=== PATIENT | female | born 1980 | race Caucasian/White ===

== ENCOUNTER 2018-12-02 21:00 | Emergency (ER) | payer MEDICAID ==
[~2018-12-02] VITALS: Ht 160 cm; Wt 63.0 kg
[~2018-12-02 21:00] MED LIST: ALPR0.5T9 PO; AMPH30CA10 PO; ASPI1CPM9 PO; IBUP-1986 PO; LAMO25TA5 PO; ONDA4TAB12 PO; PANT40TA4 PO
[2018-12-02 21:07] VITALS: BP 107/62
[2018-12-02] MEDS ORDERED: ONDA8TAB6 PO (23:47)
[2018-12-02] MEDS ORDERED: acetaminophen 325mg tablet PO ONE (23:50)
[2018-12-02] MEDS ORDERED: ondansetron 4mg rapidly disintigrating tab PO ONE (23:50)
== END 2018-12-02 23:56 | disposition home or self-care (01) ==
LOC: ER 21:02
DX: S06.0X0A Concussion without loss of consciousness, initial encounter (principal); M79.10 Myalgia, unspecified site; R11.2 Nausea with vomiting, unspecified; R51 Headache; M54.2 Cervicalgia; R42 Dizziness and giddiness; J45.909 Unspecified asthma, uncomplicated; G89.29 Other chronic pain; Z86.73 Personal history of transient ischemic attack (TIA), and cerebral infarction without residual deficits; Z90.49 Acquired absence of other specified parts of digestive tract; Z90.710 Acquired absence of both cervix and uterus; Z98.890 Other specified postprocedural states; Z98.51 Tubal ligation status; Z88.2 Allergy status to sulfonamides; Z88.8 Allergy status to other drugs, medicaments and biological substances; Z79.82 Long term (current) use of aspirin; Z79.899 Other long term (current) drug therapy; V43.52XA Car driver injured in collision with other type car in traffic accident, initial encounter; Y93.I9 Activity, other involving external motion; Y92.488 Other paved roadways as the place of occurrence of the external cause; Y99.8 Other external cause status
CPT/HCPCS: 99284

== ENCOUNTER 2019-07-10 19:56 | Emergency (ER) | payer MEDICAID ==
[~2019-07-10] VITALS: Ht 160 cm; Wt 63.0 kg
[~2019-07-10 19:56] MED LIST changes: -AMPH30CA10 PO; +DEXT30CA6 PO; +ONDA8TAB6 PO
[2019-07-10 20:44] LABS: BASOPHILS # (AUTO) 0.1 X10'3 (0-0.2); BASOPHILS % (AUTO) 1.1 % (0-1); EOSINOPHILS # (AUTO) 0.2 X10'3 (0-0.9); EOSINOPHILS % (AUTO) 2.8 % (0-6); HEMATOCRIT 38.2 % (35.0-45.0); HEMOGLOBIN 13.1 g/dl (12.0-16.0); LYMPHOCYTES # (AUTO) 2.9 X10'3 (1.1-4.8); LYMPHOCYTES % (AUTO) 42.4 % (21-51); MEAN CORPUSCULAR HEMOGLOBIN 30.6 PG (27.0-31.0); MEAN CORPUSCULAR HGB CONC 34.3 g/dL (33.0-36.5); MEAN CORPUSCULAR VOLUME 89.4 FL (78-98); MEAN PLATELET VOLUME 9.3 FL (7.4-10.4); MONOCYTES # (AUTO) 0.6 X10'3 (0-0.9); MONOCYTES % (AUTO) 8.7 % (2-12); NEUTROPHILS # (AUTO) 3.1 X10'3 (1.8-7.7); PLATELET COUNT 202 X10'3 (140-440); RED BLOOD COUNT 4.27 X10'6 (4.20-5.60); RED CELL DISTRIBUTION WIDTH 13.6 % (11.5-14.5); WHITE BLOOD COUNT 6.8 X10'3 (4.5-11.0)
[2019-07-10 20:56] LABS: ALANINE AMINOTRANSFERASE 22 U/L (12-78); ALBUMIN 3.5 G/DL (3.4-5.0); ALKALINE PHOSPHATASE 95 IU/L (46-116); ANION GAP 7 (8-16); ASPARTATE AMINO TRANSFERASE 12 U/L (10-37); BILIRUBIN,TOTAL 0.1 MG/DL (0.1-1.0); BLOOD UREA NITROGEN 16 MG/DL (7-18); BUN/CREATININE RATIO 19.8 (6.6-38.0); CHLORIDE 107 MMOL/L (99-107); CREATININE 0.81 MG/DL (0.40-0.90); GLUCOSE 97 MG/DL (70-104); POTASSIUM 3.7 MMOL/L (3.5-5.1); SODIUM 143 MMOL/L (135-145); TOTAL CARBON DIOXIDE 28.7 MMOL/L (24-32); TOTAL PROTEIN 6.9 G/DL (6.4-8.2); eGFR 79 ML/MIN
[2019-07-10 20:59] LABS: TROPONIN I < 0.04 NG/ML (0.0-0.05)
[2019-07-10] MEDS ORDERED: sucralfate 1 gm tablet PO ONE (21:40)
[2019-07-10] MEDS ORDERED: LIDOcaine Viscous 15ml cup MM ONE (21:40)
[2019-07-10] MEDS ORDERED: mag hydrox/Alum hydrox/simeth 30ml oral suspension PO ONE (21:40)
[2019-07-10] MEDS ORDERED: PANT-47 PO (21:44)
[2019-07-10 21:58] VITALS: BP 115/72
== END 2019-07-10 21:59 | disposition home or self-care (01) ==
LOC: ER 19:56
DX: R10.13 Epigastric pain (principal); J45.909 Unspecified asthma, uncomplicated; G89.29 Other chronic pain; Z88.2 Allergy status to sulfonamides; Z88.8 Allergy status to other drugs, medicaments and biological substances; Z88.6 Allergy status to analgesic agent; Z79.899 Other long term (current) drug therapy; Z79.82 Long term (current) use of aspirin; Z86.73 Personal history of transient ischemic attack (TIA), and cerebral infarction without residual deficits; Z90.49 Acquired absence of other specified parts of digestive tract; Z90.710 Acquired absence of both cervix and uterus; Z90.89 Acquired absence of other organs; Z98.51 Tubal ligation status; Z85.41 Personal history of malignant neoplasm of cervix uteri
CPT/HCPCS: 36415; 71045; 80053; 84484; 85025; 93005; 99284

== ENCOUNTER 2019-12-17 01:55 | Emergency (ER) | payer MEDICAID ==
[~2019-12-17] VITALS: Ht 160 cm; Wt 70.0 kg
[~2019-12-17 01:55] MED LIST changes: +PANT-47 PO
[2019-12-17] MEDS ORDERED: ketorolac trometh inj. 60 MG/2 ML VIAL IM ONE (02:10)
[2019-12-17] MEDS ORDERED: HYDR-3965 PO (02:13)
[2019-12-17] MEDS ORDERED: AMOX500C2 PO (02:13)
[2019-12-17 02:32] VITALS: BP 120/78
== END 2019-12-17 02:33 | disposition home or self-care (01) ==
LOC: ER 01:55
DX: K02.9 Dental caries, unspecified (principal); G89.29 Other chronic pain; J45.909 Unspecified asthma, uncomplicated; Z86.73 Personal history of transient ischemic attack (TIA), and cerebral infarction without residual deficits; Z90.49 Acquired absence of other specified parts of digestive tract; Z90.710 Acquired absence of both cervix and uterus; Z90.81 Acquired absence of spleen; Z98.51 Tubal ligation status; Z88.2 Allergy status to sulfonamides; Z88.5 Allergy status to narcotic agent; Z79.82 Long term (current) use of aspirin; Z79.899 Other long term (current) drug therapy
CPT/HCPCS: 96372; 99283; J1885

== ENCOUNTER 2019-12-23 15:30 | Emergency (ER) | payer MEDICAID ==
[~2019-12-23] VITALS: Ht 160 cm; Wt 70.0 kg
[~2019-12-23 15:30] MED LIST changes: +AMOX500C2 PO; +HYDR-3965 PO
[2019-12-23 15:35] VITALS: BP 104/62
[2019-12-23] MEDS ORDERED: BUPIVAcaine 0.5% W/EPI /PF 30ml vial IJ STA (15:58)
[2019-12-23] MEDS ORDERED: TRAM50TA2 PO (16:32)
== END 2019-12-23 16:42 | disposition home or self-care (01) ==
LOC: ER 15:31
DX: K02.9 Dental caries, unspecified (principal); Z86.73 Personal history of transient ischemic attack (TIA), and cerebral infarction without residual deficits; J45.909 Unspecified asthma, uncomplicated; Z85.9 Personal history of malignant neoplasm, unspecified; Z90.49 Acquired absence of other specified parts of digestive tract; Z90.710 Acquired absence of both cervix and uterus; Z98.51 Tubal ligation status; Z90.89 Acquired absence of other organs; Z88.2 Allergy status to sulfonamides; Z88.5 Allergy status to narcotic agent; Z88.8 Allergy status to other drugs, medicaments and biological substances; Z79.2 Long term (current) use of antibiotics; Z79.82 Long term (current) use of aspirin; Z79.899 Other long term (current) drug therapy
CPT/HCPCS: 64400; 64450; 99284

== ENCOUNTER 2020-01-21 11:49 | Emergency (ER) | payer MEDICAID ==
[~2020-01-21] VITALS: Ht 160 cm; Wt 75.0 kg
[~2020-01-21 11:49] MED LIST changes: -AMOX500C2 PO; -HYDR-3965 PO
[2020-01-21 11:51] VITALS: BP 120/68
[2020-01-21] MEDS ORDERED: HYDR-4353 PO (13:10)
== END 2020-01-21 13:28 | disposition home or self-care (01) ==
LOC: ER 11:50
DX: M72.2 Plantar fascial fibromatosis (principal); M54.2 Cervicalgia; M79.672 Pain in left foot; R20.8 Other disturbances of skin sensation; J45.909 Unspecified asthma, uncomplicated; G89.29 Other chronic pain; Z86.73 Personal history of transient ischemic attack (TIA), and cerebral infarction without residual deficits; Z85.41 Personal history of malignant neoplasm of cervix uteri; Z90.49 Acquired absence of other specified parts of digestive tract; Z90.710 Acquired absence of both cervix and uterus; Z90.89 Acquired absence of other organs; Z98.51 Tubal ligation status; Z88.5 Allergy status to narcotic agent; Z88.2 Allergy status to sulfonamides; Z88.8 Allergy status to other drugs, medicaments and biological substances; Z79.82 Long term (current) use of aspirin; Z79.899 Other long term (current) drug therapy
CPT/HCPCS: 99283

== ENCOUNTER 2020-05-07 09:00 | Emergency (ER) | payer MEDICAID ==
[~2020-05-07] VITALS: Ht 160 cm; Wt 69.5 kg
[2020-05-07 10:45] LABS: CLARITY,URINE SLIGHTLY CLOUDY (Clear); COLOR,URINE YELLOW (Yellow); GLUCOSE, URINE NEGATIVE (Neg); KETONES,URINE NEGATIVE (Neg); LEUKOCYTE ESTERASE ,URINE NEGATIVE (Neg); NITRITES, URINE NEGATIVE (Neg); OCCULT BLOOD,URINE MODERATE (Neg); PROTEIN,URINE NEGATIVE (Neg); UROBILINOGEN,URINE 0.2 E.U/dL (0.2-1.0)
[2020-05-07 10:47] LABS: URINE HCG NEGATIVE (NEG)
[2020-05-07 10:48] LABS: UA COLLECTION TYPE CLN CATCH MIDSTREAM
[2020-05-07 10:55] LABS: BACTERIA,URINE 1+ /HPF (Neg); MUCUS STRANDS NONE SEEN /LPF (Neg); SQUAMOUS EPITHELIAL CELL,UR MODERATE /LPF (FEW); WBC CLUMPS,URINE FEW /HPF (NEGATIVE)
[2020-05-07 11:01] LABS: BASOPHILS # (AUTO) 0.1 X10'3 (0-0.2); BASOPHILS % (AUTO) 0.9 % (0-1); EOSINOPHILS # (AUTO) 0.2 X10'3 (0-0.9); EOSINOPHILS % (AUTO) 2.6 % (0-6); HEMATOCRIT 40.8 % (35.0-45.0); HEMOGLOBIN 13.8 g/dl (12.0-16.0); LYMPHOCYTES # (AUTO) 2.4 X10'3 (1.1-4.8); LYMPHOCYTES % (AUTO) 32.2 % (21-51); MEAN CORPUSCULAR HEMOGLOBIN 29.8 PG (27.0-31.0); MEAN CORPUSCULAR HGB CONC 33.8 g/dL (33.0-36.5); MEAN PLATELET VOLUME 9.1 FL (7.4-10.4); MONOCYTES # (AUTO) 0.3 X10'3 (0-0.9); MONOCYTES % (AUTO) 4.5 % (2-12); NEUTROPHILS # (AUTO) 4.5 X10'3 (1.8-7.7); NEUTROPHILS % (AUTO) 59.8 % (42-75); PLATELET COUNT 233 X10'3 (140-440); RED BLOOD COUNT 4.64 X10'6 (4.20-5.60); RED CELL DISTRIBUTION WIDTH 13.1 % (11.5-14.5); WHITE BLOOD COUNT 7.5 X10'3 (4.5-11.0)
--- NOTE | 2020-05-07 11:05 | NUR ---
Pt. stated that she is not willling to take a COVID swab at this time. ISSAC boyce informed.
[2020-05-07 11:17] LABS: ALANINE AMINOTRANSFERASE 23 U/L (12-78); ALBUMIN 3.4 G/DL (3.4-5.0); ALBUMIN/GLOBULIN RATIO 1.1 (1.1-1.5); ALKALINE PHOSPHATASE 75 IU/L (46-116); ANION GAP 8 (8-16); ASPARTATE AMINO TRANSFERASE 15 U/L (10-37); BILIRUBIN,TOTAL 0.3 MG/DL (0.1-1.0); BLOOD UREA NITROGEN 9 MG/DL (7-18); BUN/CREATININE RATIO 14.3 (6.6-38.0); CALCIUM 8.4 MG/DL (8.5-10.1); CHLORIDE 107 MMOL/L (99-107); CREATININE 0.63 MG/DL (0.40-0.90); GLUCOSE 87 MG/DL (70-104); POTASSIUM 4.2 MMOL/L (3.5-5.1); SODIUM 138 MMOL/L (135-145); TOTAL CARBON DIOXIDE 23.5 MMOL/L (24-32); TOTAL PROTEIN 6.6 G/DL (6.4-8.2); eGFR > 90 ML/MIN
[2020-05-07] MEDS ORDERED: ONDA4TAB6 PO (12:05)
[2020-05-07] MEDS ORDERED: CEPH-572 PO (12:05)
[2020-05-07 12:49] VITALS: BP 105/72
== END 2020-05-07 12:56 | disposition home or self-care (01) ==
LOC: ER 09:01
DX: N39.0 Urinary tract infection, site not specified (principal); Z20.828 Contact with and (suspected) exposure to other viral communicable diseases; R50.9 Fever, unspecified; R06.02 Shortness of breath; R11.2 Nausea with vomiting, unspecified; R19.7 Diarrhea, unspecified; J45.909 Unspecified asthma, uncomplicated; G89.29 Other chronic pain; Z86.73 Personal history of transient ischemic attack (TIA), and cerebral infarction without residual deficits; Z90.49 Acquired absence of other specified parts of digestive tract; Z90.710 Acquired absence of both cervix and uterus; Z90.89 Acquired absence of other organs; Z98.51 Tubal ligation status; Z88.2 Allergy status to sulfonamides; Z88.1 Allergy status to other antibiotic agents; Z79.82 Long term (current) use of aspirin; Z79.899 Other long term (current) drug therapy
CPT/HCPCS: 36415; 80053; 81001; 81025; 85025; 87635; 99283

== ENCOUNTER 2020-07-02 23:19 | Emergency (ER) | payer MEDICAID ==
[~2020-07-02] VITALS: Ht 160 cm; Wt 70.0 kg
[~2020-07-02 23:19] MED LIST changes: +CEPH-572 PO; +ONDA4TAB6 PO; -PANT40TA4 PO; +PANT40TA54 PO
[2020-07-02] MEDS ORDERED: ketorolac trometh. 30mg/ml inj. IV STA (23:31)
[2020-07-02] MEDS ORDERED: ondansetron/PF 4mg/2ml inj IV STA (23:31)
[2020-07-02] MEDS ORDERED: normal saline 1000ml 1,000 ML IV ONE (23:35)
[2020-07-02 23:46] LABS: ANION GAP 14 (8-16); BLOOD UREA NITROGEN 16 MG/DL (7-18); CALCIUM 9.6 MG/DL (8.5-10.1); CHLORIDE 105 MMOL/L (99-107); CREATININE 0.94 MG/DL (0.40-0.90); GLUCOSE 104 MG/DL (70-104); POTASSIUM 3.7 MMOL/L (3.5-5.1); SODIUM 144 MMOL/L (135-145); TOTAL CARBON DIOXIDE 25.2 MMOL/L (24-32); eGFR 66 ML/MIN
[2020-07-02 23:47] LABS: BASOPHILS # (AUTO) 0.1 X10'3 (0-0.2); BASOPHILS % (AUTO) 1.1 % (0-1); EOSINOPHILS # (AUTO) 0.3 X10'3 (0-0.9); HEMOGLOBIN 13.9 g/dl (12.0-16.0); MEAN CORPUSCULAR VOLUME 89.1 FL (78-98)
[2020-07-02 23:47] LABS: URINE HCG NEGATIVE (NEG)
--- NOTE | 2020-07-02 23:48 | NUR ---
Pt ambulatory to restroom.
[2020-07-02 23:49] LABS: EOSINOPHILS % (AUTO) 3.1 % (0-6); HEMATOCRIT 40.7 % (35.0-45.0); LYMPHOCYTES # (AUTO) 3.5 X10'3 (1.1-4.8); LYMPHOCYTES % (AUTO) 41.5 % (21-51); MEAN CORPUSCULAR HEMOGLOBIN 30.5 PG (27.0-31.0); MEAN CORPUSCULAR HGB CONC 34.2 g/dL (33.0-36.5); MEAN PLATELET VOLUME 9.1 FL (7.4-10.4); MONOCYTES # (AUTO) 0.8 X10'3 (0-0.9); MONOCYTES % (AUTO) 9.9 % (2-12); NEUTROPHILS # (AUTO) 3.7 X10'3 (1.8-7.7); NEUTROPHILS % (AUTO) 44.4 % (42-75); PLATELET COUNT 256 X10'3 (140-440); RED BLOOD COUNT 4.57 X10'6 (4.20-5.60); RED CELL DISTRIBUTION WIDTH 13.5 % (11.5-14.5); WHITE BLOOD COUNT 8.4 X10'3 (4.5-11.0)
[2020-07-02 23:53] LABS: CLARITY,URINE CLEAR (Clear); COLOR,URINE YELLOW (Yellow); GLUCOSE, URINE NEGATIVE (Neg); KETONES,URINE NEGATIVE (Neg); LEUKOCYTE ESTERASE ,URINE NEGATIVE (Neg); NITRITES, URINE NEGATIVE (Neg); OCCULT BLOOD,URINE LARGE (Neg); PROTEIN,URINE NEGATIVE (Neg); UROBILINOGEN,URINE 0.2 E.U/dL (0.2-1.0)
[2020-07-02 23:54] LABS: UA COLLECTION TYPE CLN CATCH MIDSTREAM
[2020-07-02] MEDS ORDERED: HYDROmorphone 1 mg/ml syringe IV ONE (23:55)
[2020-07-02] MEDS ORDERED: ondansetron/PF 4mg/2ml inj IV ONE (23:55)
[2020-07-03] LABS: SQUAMOUS EPITHELIAL CELL,UR MANY /LPF (FEW)
[2020-07-03 00:01] LABS: BACTERIA,URINE 1+ /HPF (Neg); WBC,URINE 0-4 /HPF (0-4)
--- NOTE | 2020-07-03 00:34 | NUR ---
PT REPORTS PAIN IS AGAIN INCREASING TO 04/14. EDMD BAEHR MADE AWARE. NO NEW VERBAL ORDER AT THIS TIME.
[2020-07-03] MEDS ORDERED: HYDROmorphone 1 mg/ml syringe IV ONE (00:45)
[2020-07-03 00:56] LABS: LIPASE 121 U/L (73-393)
[2020-07-03] MEDS ORDERED: famotidine/PF 10 mg/ml inj IV ONE (01:20)
[2020-07-03] MEDS ORDERED: LORazepam 2 mg/ml vial IV ONE (01:20)
[2020-07-03] MEDS: diatr meglu/diatrizoate 30ml oral sol.-(3 dose) bottle PO SCH ×3 (01:27→02:38)
[2020-07-03] MEDS ORDERED: iohexol 300mg/ml 100ml inj. ONE (02:02)
--- NOTE | 2020-07-03 03:36 | NUR ---
PT UP AND AMBULATED WITH STEADY GAIT WITHOUT ASSISTANCE TO THE BATHROOM. STATES 3/10 PAIN AT THIS TIME THAT IS "MANAGABLE." NO OTHER COMPLAINTS AT THIS TIME. EDMD BAEHR AWARE OF PT STATUS
[2020-07-03 03:59] VITALS: BP 114/78
== END 2020-07-03 04:05 | disposition home or self-care (01) ==
LOC: ER 23:20
DX: R10.12 Left upper quadrant pain (principal); R11.2 Nausea with vomiting, unspecified; J45.909 Unspecified asthma, uncomplicated; G89.29 Other chronic pain; F17.200 Nicotine dependence, unspecified, uncomplicated; Z86.73 Personal history of transient ischemic attack (TIA), and cerebral infarction without residual deficits; Z85.41 Personal history of malignant neoplasm of cervix uteri; Z90.49 Acquired absence of other specified parts of digestive tract; Z90.710 Acquired absence of both cervix and uterus; Z98.51 Tubal ligation status; Z90.89 Acquired absence of other organs; Z88.2 Allergy status to sulfonamides; Z88.5 Allergy status to narcotic agent; Z88.8 Allergy status to other drugs, medicaments and biological substances; Z79.82 Long term (current) use of aspirin; Z79.2 Long term (current) use of antibiotics; Z79.899 Other long term (current) drug therapy
CPT/HCPCS: 36415; 74176; 74177; 80048; 81001; 81025; 83690; 85025; 96361; 96374; 96375; 96376; 99285; J1170; J1885; J2060; J2405; J3490; J7030; Q9963; Q9967

== ENCOUNTER 2020-07-20 15:59 | Emergency (ER) | payer MEDICAID ==
[~2020-07-20] VITALS: Ht 160 cm; Wt 70.5 kg
== END 2020-07-20 18:36 | disposition home or self-care (01) ==
LOC: ER 16:00
DX: R05 Cough (principal); R42 Dizziness and giddiness; J45.909 Unspecified asthma, uncomplicated; G89.29 Other chronic pain; Z85.41 Personal history of malignant neoplasm of cervix uteri; I63.9 Cerebral infarction, unspecified; Z98.51 Tubal ligation status; Z98.890 Other specified postprocedural states; Z88.2 Allergy status to sulfonamides; Z88.5 Allergy status to narcotic agent
CPT/HCPCS: 36415; 87635; 99283

== ENCOUNTER 2021-05-13 18:42 | Emergency (ER) | payer OTHER, MEDICAID ==
[~2021-05-13] VITALS: Ht 160 cm; Wt 70.5 kg
[2021-05-13] MEDS ORDERED: normal saline 1000ML IV soln IVB ONE (19:00)
[2021-05-13 19:31] LABS: BASOPHILS # (AUTO) 0.1 X10'3 (0-0.2); EOSINOPHILS # (AUTO) 0.3 X10'3 (0-0.9); EOSINOPHILS % (AUTO) 3.9 % (0-6); HEMOGLOBIN 14.4 g/dl (12.0-16.0); LYMPHOCYTES # (AUTO) 2.7 X10'3 (1.1-4.8); MEAN CORPUSCULAR HGB CONC 33.4 g/dL (33.0-36.5); MEAN PLATELET VOLUME 9.4 FL (7.4-10.4); MONOCYTES # (AUTO) 0.5 X10'3 (0-0.9); MONOCYTES % (AUTO) 6.5 % (2-12); NEUTROPHILS # (AUTO) 3.7 X10'3 (1.8-7.7); NEUTROPHILS % (AUTO) 51.6 % (42-75); PLATELET COUNT 260 X10'3 (140-440); RED BLOOD COUNT 4.78 X10'6 (4.20-5.60); RED CELL DISTRIBUTION WIDTH 13.6 % (11.5-14.5); WHITE BLOOD COUNT 7.2 X10'3 (4.5-11.0)
[2021-05-13 19:40] LABS: ALANINE AMINOTRANSFERASE 30 U/L (12-78); ALBUMIN 3.7 G/DL (3.4-5.0); ALBUMIN/GLOBULIN RATIO 1.1 (1.1-1.5); ALKALINE PHOSPHATASE 110 IU/L (46-116); ANION GAP 10 (8-16); ASPARTATE AMINO TRANSFERASE 17 U/L (10-37); BILIRUBIN,TOTAL 0.2 MG/DL (0.1-1.0); BLOOD UREA NITROGEN 9 MG/DL (7-18); BUN/CREATININE RATIO 11.4 (6.6-38.0); CALCIUM 8.5 MG/DL (8.5-10.1); CHLORIDE 108 MMOL/L (99-107); CREATININE 0.79 MG/DL (0.40-0.90); GLUCOSE 83 MG/DL (70-104); POTASSIUM 4.1 MMOL/L (3.5-5.1); SODIUM 143 MMOL/L (135-145); TOTAL CARBON DIOXIDE 25.5 MMOL/L (24-32); eGFR 81 ML/MIN
--- NOTE | 2021-05-13 20:48 | NUR ---
[facility]imes swab collected, piv placed and 1 liter ns bolus started. Pt is tearful and states she is nauseaus,she is painful to the r abd that radiates to her right back and that she is generally painful all over. States I dont think is it covid...i think i swallowed my (mouth) abscess (fluid) and tht may be what it is...maybe i have a kidney stone". Verbal received for gerardo.
[2021-05-13] MEDS ORDERED: ondansetron/PF 4mg/2ml inj IV ONE (20:50)
[2021-05-13] MEDS ORDERED: ketorolac trometh. 30mg/ml inj. IV ONE (20:55)
--- NOTE | 2021-05-13 21:22 | NUR ---
Pt updated need for urine sample. States she is dehydrated. Jeff Bazan updated.
[2021-05-13] MEDS ORDERED: ONDA4TAB6 PO (22:05)
[2021-05-13] MEDS ORDERED: CEPH250T PO (22:05)
[2021-05-13] MEDS ORDERED: NAPR-56 PO (22:05)
[2021-05-13] MEDS ORDERED: HYDR-3965 PO (22:05)
[2021-05-13 22:11] LABS: URINE HCG NEGATIVE (NEG)
[2021-05-13 22:23] VITALS: BP 119/53
[2021-05-13 22:29] LABS: CLARITY,URINE CLEAR (Clear); COLOR,URINE YELLOW (Yellow); GLUCOSE, URINE NEGATIVE (Neg); KETONES,URINE NEGATIVE (Neg); NITRITES, URINE NEGATIVE (Neg); OCCULT BLOOD,URINE TRACE-INTACT (Neg); PH,URINE 5.5 (4.8-8.0); PROTEIN,URINE NEGATIVE (Neg); UA COLLECTION TYPE CLN CATCH MIDSTREAM
[2021-05-13 22:30] LABS: LEUKOCYTE ESTERASE ,URINE NEGATIVE (Neg); UROBILINOGEN,URINE 0.2 E.U/dL (0.2-1.0)
[2021-05-13 22:39] LABS: BACTERIA,URINE 1+ /HPF (Neg); MUCUS STRANDS FEW /LPF (Neg); RBC,URINE 0-2 /HPF (0-2); SQUAMOUS EPITHELIAL CELL,UR NONE SEEN /LPF (FEW); WBC,URINE 0-4 /HPF (0-4)
== END 2021-05-13 22:17 | disposition home or self-care (01) ==
LOC: ER 18:45
DX: K08.89 Other specified disorders of teeth and supporting structures (principal); Z20.822 Contact with and (suspected) exposure to COVID-19; R10.31 Right lower quadrant pain; M54.5 Low back pain; R11.2 Nausea with vomiting, unspecified; J44.9 Chronic obstructive pulmonary disease, unspecified; G89.29 Other chronic pain; Z86.73 Personal history of transient ischemic attack (TIA), and cerebral infarction without residual deficits; Z85.41 Personal history of malignant neoplasm of cervix uteri; Z90.49 Acquired absence of other specified parts of digestive tract; Z90.710 Acquired absence of both cervix and uterus; Z98.51 Tubal ligation status; Z88.2 Allergy status to sulfonamides; Z88.5 Allergy status to narcotic agent; Z88.8 Allergy status to other drugs, medicaments and biological substances; Z79.82 Long term (current) use of aspirin; Z79.2 Long term (current) use of antibiotics; Z79.899 Other long term (current) drug therapy
CPT/HCPCS: 36415; 71045; 74176; 80053; 81001; 81025; 85025; 87088; 87635; 96361; 96374; 96375; 99285; C9803; J1885; J2405; J7030

== ENCOUNTER 2022-01-15 16:05 | Emergency (ER) | payer OTHER, MEDICAID ==
[~2022-01-15] VITALS: Ht 160 cm; Wt 72.7 kg
--- NOTE | 2022-01-15 17:28 | NUR ---
ISSAC Chaidez at bedside.
[2022-01-15] MEDS ORDERED: HYDR-3972 PO (17:48)
[2022-01-15] MEDS ORDERED: DOXY100C76 PO (17:48)
[2022-01-15] MEDS ORDERED: LIDOcaine 1% 30ml preserv. free vial IJ ONE (18:25)
[2022-01-15] MEDS ORDERED: CLIN300C63 PO (19:17)
[2022-01-15 20:20] VITALS: BP 112/70
== END 2022-01-15 20:23 | disposition home or self-care (01) ==
LOC: ER 16:06
DX: L03.011 Cellulitis of right finger (principal); I11.9 Hypertensive heart disease without heart failure; G89.29 Other chronic pain; Z87.442 Personal history of urinary calculi; J44.9 Chronic obstructive pulmonary disease, unspecified; Z88.2 Allergy status to sulfonamides; Z79.899 Other long term (current) drug therapy
CPT/HCPCS: 10060; 87070; 87077; 87186; 99283

== ENCOUNTER 2023-03-13 14:14 | Emergency (ER) | payer OTHER, MEDICAID ==
[~2023-03-13] VITALS: Ht 160 cm; Wt 60.2 kg
[2023-03-13 14:22] VITALS: BP 139/81
[2023-03-13 15:17] LABS: BASOPHILS # (AUTO) 0.1 X10'3 (0-0.2); BASOPHILS % (AUTO) 0.9 % (0-1); EOSINOPHILS # (AUTO) 0.4 X10'3 (0-0.9); EOSINOPHILS % (AUTO) 5.5 % (0-6); HEMATOCRIT 43.1 % (35.0-45.0); HEMOGLOBIN 14.6 g/dl (12.0-16.0); LYMPHOCYTES % (AUTO) 26.4 % (21-51); MEAN CORPUSCULAR HEMOGLOBIN 30.1 PG (27.0-31.0); MEAN CORPUSCULAR HGB CONC 33.8 g/dL (33.0-36.5); MEAN PLATELET VOLUME 8.8 FL (7.4-10.4); MONOCYTES # (AUTO) 0.4 X10'3 (0-0.9); MONOCYTES % (AUTO) 5.3 % (2-12); NEUTROPHILS # (AUTO) 4.7 X10'3 (1.8-7.7); NEUTROPHILS % (AUTO) 61.9 % (42-75); PLATELET COUNT 287 X10'3 (140-440); RED BLOOD COUNT 4.85 X10'6 (4.20-5.60); RED CELL DISTRIBUTION WIDTH 13.4 % (11.5-14.5); WHITE BLOOD COUNT 7.5 X10'3 (4.5-11.0)
[2023-03-13 15:20] LABS: APTT 27 SECONDS (22-32)
[2023-03-13 15:24] LABS: ALANINE AMINOTRANSFERASE 36 U/L (12-78); ALBUMIN 3.7 G/DL (3.4-5.0); ALBUMIN/GLOBULIN RATIO 1.2 (1.1-1.5); ALKALINE PHOSPHATASE 94 IU/L (46-116); ANION GAP 8 (8-16); ASPARTATE AMINO TRANSFERASE 25 U/L (10-37); BILIRUBIN,TOTAL 0.3 MG/DL (0.1-1.0); BLOOD UREA NITROGEN 10 MG/DL (7-18); BUN/CREATININE RATIO 13.9 (10.0-20.0); CHLORIDE 106 MMOL/L (99-107); CREATININE 0.72 MG/DL (0.40-0.90); GLUCOSE 106 MG/DL (70-104); POTASSIUM 4.1 MMOL/L (3.5-5.1); SODIUM 141 MMOL/L (135-145); TOTAL CARBON DIOXIDE 27.2 MMOL/L (24-32); TOTAL PROTEIN 6.9 G/DL (6.4-8.2); eGFR 89 ML/MIN
[2023-03-13] MEDS ORDERED: IBUP-1986 PO (17:37)
== END 2023-03-13 17:59 | disposition home or self-care (01) ==
LOC: ER 14:14
DX: R20.0 Anesthesia of skin (principal); R53.1 Weakness; G89.29 Other chronic pain; M54.9 Dorsalgia, unspecified; J45.909 Unspecified asthma, uncomplicated; J44.9 Chronic obstructive pulmonary disease, unspecified; Z88.2 Allergy status to sulfonamides; Z88.1 Allergy status to other antibiotic agents; Z88.5 Allergy status to narcotic agent; Z79.899 Other long term (current) drug therapy
CPT/HCPCS: 36415; 70450; 71045; 80053; 85025; 85610; 85730; 93005; 99285

== ENCOUNTER 2024-01-13 09:59 | Emergency (ER) | payer MEDICAID, OTHER ==
[~2024-01-13] VITALS: Ht 160 cm; Wt 52.0 kg
[2024-01-13 10:01] VITALS: BP 128/76; PULSE 67; RESP 18; TEMP 98.4; O2SAT 99
[2024-01-13] MEDS ORDERED: CYCL-1 PO (14:39)
== END 2024-01-13 13:00 | disposition home or self-care (01) ==
LOC: ER 10:00
DX: M54.6 Pain in thoracic spine (principal); M79.602 Pain in left arm; J44.9 Chronic obstructive pulmonary disease, unspecified; F17.200 Nicotine dependence, unspecified, uncomplicated; Z88.2 Allergy status to sulfonamides; Z88.1 Allergy status to other antibiotic agents; Z88.5 Allergy status to narcotic agent; Z79.82 Long term (current) use of aspirin; Z79.2 Long term (current) use of antibiotics; Z79.899 Other long term (current) drug therapy; Y08.89XA Assault by other specified means, initial encounter; Y93.89 Activity, other specified; Y92.89 Other specified places as the place of occurrence of the external cause; Y99.8 Other external cause status
CPT/HCPCS: 99283

== ENCOUNTER 2024-11-09 16:52 | Emergency (ER) | payer MEDICAID, OTHER ==
[~2024-11-09] VITALS: Ht 160 cm; Wt 51.4 kg
[~2024-11-09 16:52] MED LIST changes: +CYCL-1 PO; +ONDA-243 PO; -ONDA4TAB12 PO
[2024-11-09 20:54] LABS: BASOPHILS % (AUTO) 0.6 % (0-1); EOSINOPHILS # (AUTO) 0.1 X10'3 (0-0.9); EOSINOPHILS % (AUTO) 0.9 % (0-6); HEMATOCRIT 35.6 % (35.0-45.0); HEMOGLOBIN 11.9 g/dl (12.0-16.0); LYMPHOCYTES # (AUTO) 1.3 X10'3 (1.1-4.8); LYMPHOCYTES % (AUTO) 17.2 % (21-51); MEAN CORPUSCULAR HEMOGLOBIN 28.8 PG (27.0-31.0); MEAN CORPUSCULAR HGB CONC 33.3 g/dL (33.0-36.5); MEAN CORPUSCULAR VOLUME 86.5 FL (78-98); MONOCYTES # (AUTO) 0.5 X10'3 (0-0.9); MONOCYTES % (AUTO) 6.6 % (2-12); NEUTROPHILS # (AUTO) 5.6 X10'3 (1.8-7.7); NEUTROPHILS % (AUTO) 74.7 % (42-75); PLATELET COUNT 290 X10'3 (140-440); RED BLOOD COUNT 4.12 X10'6 (4.20-5.60); RED CELL DISTRIBUTION WIDTH 13.9 % (11.5-14.5); WHITE BLOOD COUNT 7.5 X10'3 (4.5-11.0)
[2024-11-09 21:09] LABS: ALANINE AMINOTRANSFERASE 237 U/L (12-78); ALBUMIN 2.9 G/DL (3.4-5.0); ALBUMIN/GLOBULIN RATIO 0.9 (1.1-1.5); ALKALINE PHOSPHATASE 150 IU/L (46-116); ANION GAP 7 (8-16); ASPARTATE AMINO TRANSFERASE 209 U/L (10-37); BILIRUBIN,TOTAL 0.5 MG/DL (0.1-1.0); BLOOD UREA NITROGEN 11 MG/DL (7-18); BUN/CREATININE RATIO 15.5 (10.0-20.0); CALCIUM 8.3 MG/DL (8.5-10.1); CHLORIDE 104 MMOL/L (99-107); CREATININE 0.71 MG/DL (0.40-0.90); GLUCOSE 118 MG/DL (70-104); LIPASE 37 U/L (16-77); POTASSIUM 3.1 MMOL/L (3.5-5.1); SODIUM 137 MMOL/L (135-145); TOTAL CARBON DIOXIDE 25.7 MMOL/L (24-32); TOTAL PROTEIN 6.3 G/DL (6.4-8.2); eCRCL 83 ML/MIN; eGFR 90 ML/MIN
[2024-11-09] MEDS ORDERED: ketorolac trometh 15mg/ml vial 15 MG/ML ML IV ONE (21:15)
[2024-11-09] MEDS: acetaminophen 1,000mg/100ml IV 100 ML IV ONE (21:36)
[2024-11-09] MEDS: normal saline 1000ML IV soln IVB ONE (21:59)
[2024-11-09] MEDS: potassium Cl 20 mEq SR tablet PO STA (21:59)
[2024-11-09] MEDS ORDERED: CEFP200T13 PO (22:04)
[2024-11-09] MEDS: cefpodoxime proxetil 100mg tablet PO ONE (22:24)
[2024-11-09] MEDS: cefdinir 300mg capsule PO ONE (22:31)
[2024-11-09 22:40] VITALS: BP 124/84; PULSE 80; RESP 18; TEMP 98.3; O2SAT 99
== END 2024-11-09 22:49 | disposition home or self-care (01) ==
LOC: ER 16:53
DX: N10 Acute pyelonephritis (principal); E87.6 Hypokalemia; J44.9 Chronic obstructive pulmonary disease, unspecified; Z88.2 Allergy status to sulfonamides; Z88.1 Allergy status to other antibiotic agents; Z88.5 Allergy status to narcotic agent; Z79.899 Other long term (current) drug therapy; Z79.1 Long term (current) use of non-steroidal anti-inflammatories (NSAID); Z90.49 Acquired absence of other specified parts of digestive tract; Z90.710 Acquired absence of both cervix and uterus; Z86.73 Personal history of transient ischemic attack (TIA), and cerebral infarction without residual deficits; Z85.41 Personal history of malignant neoplasm of cervix uteri
CPT/HCPCS: 36415; 80053; 83690; 85025; 96361; 96374; 99283; J0131; J7030